=== PATIENT | female | born 1975 | race Caucasian/White ===

== ENCOUNTER 2020-06-25 11:22 | Emergency (ER) | payer MEDICAID, OTHER ==
[~2020-06-25] VITALS: Ht 162.6 cm; Wt 82.0 kg
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
[2020-06-25] MEDS ORDERED: MORPHINE SULFATE 4 MG/ML, 1ML IVPush PRN (12:00)
[2020-06-25] MEDS ORDERED: ONDANSETRON 2MG/ML, 2ML IVPush ONE (12:00)
[2020-06-25] MEDS ORDERED: DIPH,PERTUSS(ACELL),TET VAC/PF 0.5 ML IM-VACC ONE ×2 (12:00→12:07)
[2020-06-25] MEDS ORDERED: LIDOCAINE-MPF 1%, 5ML INFIL ONE (12:00)
[2020-06-25] MEDS ORDERED: SODIUM CHLORIDE 0.9% 1,000ML IVBOLUS ONE (12:00)
[2020-06-25] MEDS ORDERED: ONDANSETRON 2MG/ML, 2ML ONE (12:06)
[2020-06-25] MEDS ORDERED: LIDOCAINE-MPF 1%, 5ML ONE ×2 (12:06→13:53)
[2020-06-25] MEDS ORDERED: MORPHINE SULFATE 4 MG/ML, 1ML ONE (12:06)
[2020-06-25 12:16] LABS: BASOPHILS % (AUTO) 0 % (0-1); EOSINOPHILS % (AUTO) 1 % (1-7); LYMPHOCYTES % (AUTO) 14 % (22-44); MEAN CORPUSCULAR HEMOGLOBIN 31.9 pg (27.0-34.8); MEAN CORPUSCULAR HGB CONC 33.8 g/dL (32.4-35.8); MONOCYTES % (AUTO) 7 % (2-9); NEUTROPHILS % (AUTO) 78 % (42-75); PLATELET COUNT 258 x10^3/uL (130-400); RED BLOOD COUNT 4.24 x10^6/uL (3.82-5.3)
--- NOTE | 2020-06-25 12:19 | NUR ---
PT MEDICATED PER MAR AND IS AWAITING CT.
[2020-06-25 12:21] LABS: ALBUMIN 3.7 g/dL (3.4-5.0); ANION GAP 4 mmol/L (5-15); CALCIUM 8.4 mg/dL (8.5-10.1); CHLORIDE 110 mmol/L (98-107)
[2020-06-25 12:24] LABS: MD NO
[2020-06-25 12:25] LABS: ALANINE AMINOTRANSFERASE 24 U/L (12-78); ALKALINE PHOSPHATASE 65 U/L (45-117); BILIRUBIN,TOTAL 0.5 mg/dL (0.2-1.0); CREATININE 0.79 mg/dL (0.55-1.02); TOTAL PROTEIN 7.1 g/dL (6.4-8.2)
--- NOTE | 2020-06-25 13:02 | NUR ---
PT. REPORTS RELIEF FROM PAIN MEDS. PT. WAS ASSISTED TO THE RESTROOM TO VOID AND TAKEN TO RADIOLOGY. VSS.
[2020-06-25] MEDS ORDERED: OMNIPAQUE 350 MG/ML, 100ML BOTTLE ONE (13:33)
[2020-06-25 14:06] VITALS: BP 161/54
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
--- NOTE | 2020-06-25 15:35 | NUR ---
Patient given discharge instructions and they have confirmed that they understand the instructions. Patient ambulatory with steady gait.
== END 2020-06-25 15:36 | disposition home or self-care (01) ==
LOC: ED 15:00
DX: S01.511A Laceration without foreign body of lip, initial encounter (principal); S00.83XA Contusion of other part of head, initial encounter; S80.12XA Contusion of left lower leg, initial encounter; S00.531A Contusion of lip, initial encounter; S00.33XA Contusion of nose, initial encounter; F17.200 Nicotine dependence, unspecified, uncomplicated; V03.19XA Pedestrian with other conveyance injured in collision with car, pick-up truck or van in traffic accident, initial encounter; Y93.89 Activity, other specified; Y92.410 Unspecified street and highway as the place of occurrence of the external cause; Y99.8 Other external cause status
CPT/HCPCS: 12051; 36415; 70450; 70486; 71260; 72125; 73590; 74177; 80053; 85025; 90471; 90715; 96361; 96374; 96375; 99285; J2270; J2405; J7030; Q9967

== ENCOUNTER 2020-07-01 11:01 | Emergency (ER) | payer MEDICAID, OTHER ==
[~2020-07-01] VITALS: Ht 162.6 cm; Wt 80.0 kg
[2020-07-01 11:04] VITALS: BP 134/87
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
--- NOTE | 2020-07-01 12:16 | NUR ---
Patient given discharge instructions and ortho referral and they have confirmed that they understand the instructions. Patient stable and ambulatory with steady gait from ED to private vehicle.
== END 2020-07-01 12:17 | disposition home or self-care (01) ==
LOC: ED 11:27
DX: S01.511D Laceration without foreign body of lip, subsequent encounter (principal); Z48.02 Encounter for removal of sutures; M25.562 Pain in left knee; M79.89 Other specified soft tissue disorders; F17.200 Nicotine dependence, unspecified, uncomplicated; V98.8XXD Other specified transport accidents, subsequent encounter
CPT/HCPCS: 29505; 99283

== ENCOUNTER → 2020-07-05 | Outpatient (CLI) | payer MEDICAID | END | disposition home or self-care (01) | LOC: RAD 13:21 | PROVIDERS: ATTEND Family Medicine Sports Medicine | DX: M79.662 Pain in left lower leg (principal) ==